=== PATIENT | male | born 1980 | race Caucasian/White ===

== ENCOUNTER 2022-02-15 01:50 | Emergency (ER) | payer MEDICAID ==
[~2022-02-15] VITALS: Ht 175.3 cm; Wt 77.1 kg
[2022-02-15 02:03] VITALS: BP 119/69
--- NOTE | 2022-02-15 02:10 | NUR ---
SEEN AND EXAMINED BY RACQUEL
[2022-02-15 02:30] VITALS: BP 111/75
[2022-02-15] MEDS ORDERED: IBUP-2213 PO (03:05)
--- NOTE | 2022-02-15 03:18 | NUR ---
PLACED PITO WRAP X1 TO R KNEE. CMS CHECKED BEFORE/AFTER.
[2022-02-15 03:40] VITALS: BP 119/80
--- NOTE | 2022-02-15 03:40 | NUR ---
PATIENT BIB [place] [employer]. PATIENT EXAMINED BY DR. NATION. PATIENT MEDICALLY CLEARED AND RELEASED IN CUSTODY IN STABLE CONDITION. ORIGINAL PRE-BOOK FORM GIVEN TO OFFICER PAULO #[id number] Patient discharged with v/s stable. Written and verbal after care instructions given and explained. Patient verbalized understanding. Police with in custody. All questions addressed prior to discharge. Advised to follow up with PMD.
== END 2022-02-15 03:40 ==
LOC: MED 01:50
DX: S80.01XA Contusion of right knee, initial encounter (principal); Z79.899 Other long term (current) drug therapy; V89.2XXA Person injured in unspecified motor-vehicle accident, traffic, initial encounter; Y93.89 Activity, other specified; Y92.89 Other specified places as the place of occurrence of the external cause; Y99.8 Other external cause status
CPT/HCPCS: 73562; 99283